=== PATIENT | male | born 1995 | race Caucasian/White ===

== ENCOUNTER 2018-04-30 17:17 | Emergency (ER) | payer BC ==
[~2018-04-30] VITALS: Ht 190.5 cm; Wt 92.3 kg
[2018-04-30] MEDS ORDERED: DEC4T PO (19:43)
[2018-04-30] MEDS ORDERED: CLIN150C2 PO (19:43)
[2018-04-30 20:25] VITALS: BP 124/68
== END 2018-04-30 20:29 | disposition home or self-care (01) ==
LOC: ER 17:18
DX: K04.7 Periapical abscess without sinus (principal); Z88.1 Allergy status to other antibiotic agents; Z88.0 Allergy status to penicillin
CPT/HCPCS: 99283

== ENCOUNTER 2021-02-24 10:22 | Emergency (ER) | payer BC, MEDICAID ==
[~2021-02-24] VITALS: Ht 188 cm; Wt 86.4 kg
[~2021-02-24 10:22] MED LIST: DEC4T PO
[2021-02-24 10:34] VITALS: BP 144/89
== END 2021-02-24 11:55 | disposition home or self-care (01) ==
LOC: ER 10:23
DX: J40 Bronchitis, not specified as acute or chronic (principal); Z20.822 Contact with and (suspected) exposure to COVID-19; R11.2 Nausea with vomiting, unspecified; Z88.1 Allergy status to other antibiotic agents; Z79.2 Long term (current) use of antibiotics
CPT/HCPCS: 87635; 99283; C9803